=== PATIENT | male | born 1960 | race Caucasian/White ===

== ENCOUNTER 2017-03-13 08:00 | Day surgery (SDC) | payer OTHER ==
[~2017-03-13 08:00] MED LIST: LACTATED RINGERS 1,000 ML ONE
[2017-03-13] MEDS ORDERED: MIDAZOLAM INJ 2 MG/2 ML VIAL ONE (08:07)
--- NOTE | 2017-03-13 09:23 | OP ---
DATE OF PROCEDURE: 03/13/17 PREPROCEDURE DIAGNOSIS: 1. Heme positive stool. 2. This is the patient's first colonoscopy. POSTPROCEDURE DIAGNOSIS: 1. Multiple colonic polyps. 2. Internal hemorrhoids. PROCEDURE: 1. Colonoscopy with snare polypectomy, biopsy and tattooing. SURGEON: Gustavo Ro MD. SEDATION: Monitored anesthesia care. ESTIMATED BLOOD LOSS: Less than 5 mL. PROCEDURE: Informed consent was obtained prior to sedation. The preprocedure cardiopulmonary assessment was satisfactory. The patient was brought to the Endoscopy Suite and placed in the left lateral decubitus position. The patient was then sedated by the anesthesia team. The tip of the Olympus colonoscope was inserted into the rectum and advanced under direct visualization to the terminal ileum. The cecum was identified by the presence of the appendiceal orifice and ileocecal valve. Upon reaching the terminal ileum, the endoscope was slowly withdrawn from the patient with careful attention paid to the entire colonic mucosa for the identification of any flat polyps or small vascular lesions. Preparation of the colon was good. The terminal ileum was normal. The cecum was normal. In the proximal ascending colon, there was a 4 cm sessile , clamshell lesion polyp that was comprising the entirety of one of the colonic folds. In the distal ascending colon, there was a 5 to 6 cm polyp, also a clamshell lesion on both sides of one of the colonic folds. These two polyps were in such a position that they were not amenable to endoscopic resection. They were very large and appeared to be tethered. Biopsies were taken of both of these polyps with cold forceps for histology. The decision was made to not attempt endoscopic resection, but to tattoo for surgical resection. Three areas of the colon were tattooed with carbon black distal to the most distal polyp. This polyp was sitting just proximal to the hepatic flexure. In the proximal transverse colon, there was a 1 cm sessile polyp. This was resected completely with hot snare polypectomy. In the distal transverse colon, there was a 6 mm sessile polyp which was resected with cold snare polypectomy and sent for pathology. A retroflexed view of the anal verge showed large, non- bleeding internal hemorrhoids. The endoscope was then withdrawn from the patient and the procedure terminated. RECOMMENDATION: 1. Discharge the patient home with escort. 2. Resume regular diet. 3. Continue present medications. 4. Place a referral for Dr. Srivastava of general surgery for consideration of right hemicolectomy due to the size of these polyps. 5. Followup in my office in 6 months for surveillance colonoscopy. [facility][id number] [facility] [place]
[2017-03-13] MEDS ORDERED: LIDOCAINE 1% 10 ML VIAL INJ ONE (10:00)
[2017-03-13] MEDS ORDERED: PROPOFOL 200 MG/20 ML VIAL IV ONE (10:00)
[2017-03-13 13:06] VITALS: TEMP 97
[2017-03-13 13:07] VITALS: BP 144/77; O2SAT 95
== END 2017-03-13 10:20 | disposition home or self-care (01) ==
LOC: AMB 08:00
PROVIDERS: ATTEND Internal Medicine Gastroenterology
DX: D12.2 Benign neoplasm of ascending colon (principal); D12.3 Benign neoplasm of transverse colon; K64.8 Other hemorrhoids; K92.1 Melena; I10 Essential (primary) hypertension; G40.909 Epilepsy, unspecified, not intractable, without status epilepticus; F17.210 Nicotine dependence, cigarettes, uncomplicated; Z79.899 Other long term (current) drug therapy; Z80.0 Family history of malignant neoplasm of digestive organs
CPT/HCPCS: 00813; 45380; 45381; 45385; J2250; J3490; J7120